=== PATIENT | female | born 1995 | race Caucasian/White ===

== ENCOUNTER 2019-08-12 21:08 | Emergency (ER) | payer MEDICAID ==
[~2019-08-12] VITALS: Ht 149.9 cm; Wt 78.9 kg
[2019-08-12 21:59] VITALS: BP 123/72
--- NOTE | 2019-08-12 23:11 | NUR ---
PATIENT LEFT WITHOUT BEING SEEN BY DR. LOPEZ. NO FURTHER CARE PROVIDED FOR PATIENT.
== END 2019-08-12 23:11 | disposition left against medical advice (07) ==
LOC: MED 21:08
DX: O21.8 Other vomiting complicating pregnancy (principal); Z53.21 Procedure and treatment not carried out due to patient leaving prior to being seen by health care provider